=== PATIENT | female | born 1980 | race Caucasian/White ===

== ENCOUNTER → 2018-05-09 08:52 | Outpatient (CLI) | payer OTHER, SELFPAY ==
--- NOTE | 2018-05-09 08:55 | US_ITS ---
US transvaginal HISTORY: ITS.REASON: pelvic pain ORDERING PHYSICIAN: Jono Harvey MD PATIENT AGE: 37 years Comparison: None FINDINGS: There has been a hysterectomy with bilateral oophorectomy. Vaginal cuff has an unremarkable appearance. No obvious pelvic mass or abnormal fluid collection. IMPRESSION: Status post hysterectomy and bilateral oophorectomy otherwise negative
== END ==
PROVIDERS: PCP Family Medicine; Visit Provider Obstetrics & Gynecology
DX: R10.2 Pelvic and perineal pain (principal)
CPT/HCPCS: 76830

== ENCOUNTER → 2022-09-18 10:43 | Outpatient (CLI) | payer OTHER, SELFPAY ==
--- NOTE | 2022-09-18 10:44 | MM_ITS ---
PROCEDURE INFORMATION: Exam: Bilateral Screening 3D Mammography Exam date and time: 09/18/2022 10:42 AM Age: 42 years old Clinical indication: Baseline. Her mother had breast cancer at age 66. TECHNIQUE: Imaging protocol: Bilateral Screening tomosynthesis and 2D mammography including computer-aided detection (CAD) when performed. COMPARISON: No relevant prior studies available. FINDINGS: MAMMOGRAPHY: Breast composition: There are scattered areas of fibroglandular density. Mass: None. Architectural distortion: None. Calcifications: No suspicious calcifications. Asymmetric density: None. Skin thickening: None. Axillary adenopathy: None. IMPRESSION: No mammographic evidence of malignancy. Annual screening is recommended unless otherwise clinically indicated. ASSESSMENT: BI-RADS Category 1: Negative
== END ==
LOC: RAD 10:44
PROVIDERS: PCP Family Medicine; Visit Provider Obstetrics & Gynecology
DX: Z12.31 Encounter for screening mammogram for malignant neoplasm of breast (principal)
CPT/HCPCS: 77063; 77067

== ENCOUNTER → 2023-03-23 08:47 | Outpatient (CLI) | payer OTHER, SELFPAY ==
--- NOTE | 2023-03-23 08:50 | XR_ITS ---
FINAL REPORT CLINICAL HISTORY: rt elbow pain COMPARISON: None FINDINGS: AP, oblique, and lateral views of the right elbow were obtained. There is no prior exam for comparison. There is no acute fracture or dislocation. Joint space is preserved. There is no joint effusion or other soft tissue abnormality. IMPRESSION: No acute osseous abnormality of the right elbow. Reviewed, Interpreted and Dictated by Doc Angeles III, MD Transcribed by Coco Bedolla Authenticated and [facility]
--- NOTE | 2023-03-23 08:50 | XR_ITS ---
FINAL REPORT CLINICAL HISTORY: rt shoulder pain COMPARISON: None FINDINGS: RIGHT SHOULDER: 4 views of the right shoulder were obtained. There is no acute fracture or dislocation. The joint spaces are intact. There is no soft tissue abnormality. IMPRESSION: No acute fracture Reviewed, Interpreted and Dictated by Doc Angeles III, MD Transcribed by Coco Bedolla Authenticated and [facility]
--- NOTE | 2023-03-23 10:23 | XR_ITS ---
FINAL REPORT TECHNIQUE: 3 views CLINICAL HISTORY: Cervical Spine Pain tingling and numbness x 6 months COMPARISON: None FINDINGS: There is no fracture present. There is no malalignment. There are no significant degenerative changes. IMPRESSION: No acute process. Reviewed, Interpreted and Dictated by Doc Angeles III, MD Transcribed by Coco Bedolla Authenticated and [facility]
== END ==
LOC: RAD 08:48
PROVIDERS: PCP Family Medicine; Visit Provider Orthopaedic Surgery
DX: M79.601 Pain in right arm (principal); M25.511 Pain in right shoulder; M54.2 Cervicalgia
CPT/HCPCS: 72040; 73030; 73080